=== PATIENT | female | born 1975 | race Caucasian/White ===

== ENCOUNTER 2018-01-12 04:48 | Emergency (ER) | payer SELFPAY ==
[2018-01-12] MEDS ORDERED: SODIUM CHLORIDE 0.9% 1000ML 1,000 ML IV ONE (05:07)
[2018-01-12] MEDS ORDERED: ONDANSETRON HCL 4 MG/2 ML VIAL ONE (05:07)
[2018-01-12 05:11] LABS: APPEARANCE,URINE Cloudy (CLEAR); BASOPHILS % (AUTO) 0.3 % (0.0-5.0); BILIRUBIN,URINE Small (NEGATIVE); COLOR,URINE Dark Yellow (YELLOW); EOSINOPHILS % (AUTO) 0.8 % (0.0-8.0); GLUCOSE, URINE (UA) Negative (NEGATIVE); HEMATOCRIT 40.1 % (36-48); KETONES,URINE Trace mg/dL (NEGATIVE); LEUKOCYTE ESTERASE ,URINE Large (NEGATIVE); LYMPHOCYTES % (AUTO) 11.1 % (21.0-51.0); MEAN CORPUSCULAR VOLUME 97.2 fL (79-99); NEUTROPHILS % (AUTO) 83.8 % (40.0-77.0); NITRATE,URINE Negative (NEGATIVE); OCCULT BLOOD,URINE Negative (NEGATIVE); PH,URINE 5.5 (5.0-8.0); PLATELET COUNT (AUTO) 262 K/uL (130-400); PROTEIN,URINE POS 1+ (NEGATIVE); RED BLOOD CELL COUNT(AUTO) 4.13 MIL/uL (4.00-5.50); RED CELL DISTRIBUTION WIDTH 12.7 % (11.0-15.5); WHITE BLOOD COUNT (AUTO) 8.6 K/uL (4.8-10.8)
[2018-01-12 05:19] LABS: BACTERIA,URINE Moderate /HPF (None Seen); MUCUS,URINE Many LPF (None Seen); SQUAMOUS EPITHELIAL CELL,UR Many /LPF (0-2)
[2018-01-12 05:21] LABS: AMYLASE 32 U/L (25-115); CREATININE 0.7 mg/dL (0.5-1.5); LIPASE 117 U/L (114-286); POTASSIUM 3.2 mmol/L (3.5-5.1)
[2018-01-12 05:25] LABS: ALBUMIN 3.8 g/dL (3.5-5.0); BILIRUBIN,TOTAL 0.4 mg/dL (0.2-1.0); TOTAL PROTEIN, SERUM 7.3 g/dL (6.0-8.3)
[2018-01-12] MEDS ORDERED: KETOROLAC TROMETHAMINE 30MG/ML ONE (06:07)
[2018-01-12] MEDS ORDERED: LEVOFLOXACIN 500 MG TABLET ONE (06:07)
== END 2018-01-12 07:33 | disposition home or self-care (01) ==
LOC: EDH 04:48
DX: N39.0 Urinary tract infection, site not specified (principal); A09 Infectious gastroenteritis and colitis, unspecified; R10.84 Generalized abdominal pain; Z79.899 Other long term (current) drug therapy
CPT/HCPCS: 36415; 80053; 81001; 81025; 82150; 82270; 83690; 85025; 87046; 87088; 87177; 87205; 96361; 96374; 96375; 99285; J1885; J2405; J7030